=== PATIENT | female | born 1985 | race Caucasian/White ===

== ENCOUNTER 2019-05-31 19:33 | Emergency (ER) | payer MEDICAID ==
[~2019-05-31] VITALS: Ht 165.1 cm; Wt 92.0 kg
[~2019-05-31 19:33] MED LIST: NO HOME MEDS
[2019-05-31] MEDS ORDERED: ibuprofen 200mg tablet PO ONE (19:45)
[2019-05-31] MEDS ORDERED: IBUP-1984 PO (21:21)
[2019-05-31 21:33] VITALS: BP 157/105
== END 2019-05-31 21:36 | disposition home or self-care (01) ==
LOC: ER 19:34
DX: K04.7 Periapical abscess without sinus (principal); F12.90 Cannabis use, unspecified, uncomplicated; Z86.19 Personal history of other infectious and parasitic diseases; Z56.0 Unemployment, unspecified; Z98.890 Other specified postprocedural states; Z79.899 Other long term (current) drug therapy
CPT/HCPCS: 99282

== ENCOUNTER 2021-03-06 20:20 | Emergency (ER) | payer MEDICAID ==
[~2021-03-06] VITALS: Ht 165.1 cm; Wt 95.5 kg
[2021-03-06 21:18] VITALS: BP 137/94
== END 2021-03-07 00:02 | disposition home or self-care (01) ==
LOC: ER 20:21
DX: U07.1 COVID-19 (principal); F12.90 Cannabis use, unspecified, uncomplicated; F17.210 Nicotine dependence, cigarettes, uncomplicated; Z72.89 Other problems related to lifestyle; Z56.0 Unemployment, unspecified; Z85.9 Personal history of malignant neoplasm, unspecified
CPT/HCPCS: 36415; 99283; U0003; U0005